=== PATIENT | female | born 2000 | race Caucasian/White ===

== ENCOUNTER → 2020-09-26 | Outpatient (CLI) | payer OTHER ==
[2020-09-26 10:39] LABS: BASOPHIL % 0.8 % (0.2-1.3); PLATELET COUNT 328 x10^3mcL (179-408)
[2020-09-26 10:41] LABS: RED CELL DISTRIBUTION WIDTH 16.1 % (12.3-17.7)
[2020-09-26 11:23] LABS: ERYTHROCYTE SED RATE 17 mm/hr (0-20)
[2020-09-26 11:43] LABS: ALBUMIN 3.6 g/dL (3.4-5.0); ALKALINE PHOSPHATASE 74 U/L (46-116); ALT/SGPT 23 U/L (14-59); AST/SGOT 18 U/L (15-37); BILIRUBIN TOTAL 0.5 mg/dL (0.20-1.00); CALCIUM 8.6 mg/dL (8.5-10.1); CARBON DIOXIDE 28.7 mmol/L (21-32); CHLORIDE SERUM 106 mmol/L (98-107); CREATININE SERUM 0.7 mg/dL (0.6-1.0); GFR1 > 60 mL/min; GLUCOSE SERUM 85 mg/dL (74-106); POTASSIUM SERUM 3.8 mmol/L (3.5-5.1); SODIUM SERUM 142 mmol/L (136-145); TOTAL PROTEIN, SERUM 7.1 g/dL (6.4-8.2)
== END | disposition home or self-care (01) ==
LOC: LB 09:58
DX: T78.3XXA Angioneurotic edema, initial encounter (principal)
CPT/HCPCS: 86003